=== PATIENT | female | born 1965 | race Caucasian/White ===

== ENCOUNTER 2022-06-20 14:51 | Emergency (ER) | payer BC ==
[~2022-06-20 14:51] MED LIST: AMOXICILLIN 25250 MG PO; LOPRESSOR 225 MG/TAB PO; NO HOME MEDICATIONS; NORVASC 5MG5 MG/TAB PO; TENORMIN25 MG PO; TOPROL XL 50MG50 MG PO; ear drops
[2022-06-20 15:21] VITALS: TEMP 97.9
[2022-06-20 16:39] LABS: COLLECTION METHOD CLEAN CATCH
[2022-06-20 16:41] LABS: URINE APPEARANCE Turbid (CLEAR/HAZY); URINE COLOR Red (YELLOW)
[2022-06-20 16:42] LABS: PH 5.5 (5.0-8.5); URINE GLUCOSE Negative (NEGATIVE); URINE KETONE 3+ (NEGATIVE); URINE NITRATE Positive (NEGATIVE); URINE PROTEIN(semi-quant) 3+ (NEGATIVE)
[2022-06-20 16:43] LABS: URINE BLOOD 3+ (NEGATIVE)
[2022-06-20 16:49] LABS: MUCOUS Present (NOT PRESENT); SQUAMOUS EPITHELIAL 20-50 /hpf (0-10); URINE BACTERIA Rare /hpf (NONE SEEN); URINE RBC >50 /hpf (0-2)
[2022-06-20] MEDS ORDERED: CIPRO 500MG TA500 MG PO (17:14)
[2022-06-20 17:27] VITALS: BP 162/132; PULSE 65
== END 2022-06-20 17:32 | disposition home or self-care (01) ==
LOC: COL.ER 14:51
PROVIDERS: Personal Emergency Response Attendant
DX: N39.0 Urinary tract infection, site not specified (principal); Z28.311 Partially vaccinated for COVID-19
CPT/HCPCS: J0696

== ENCOUNTER 2022-12-23 08:18 | Emergency (ER) | payer BC ==
[~2022-12-23] VITALS: Ht 167.6 cm; Wt 113.6 kg
[~2022-12-23 08:18] MED LIST changes: +CIPRO 500MG TA500 MG PO
[2022-12-23 08:21] VITALS: TEMP 98.2
[2022-12-23 08:53] LABS: BASO # 0.1 K/mm3 (0.0-0.2); BASO % 0.7 % (0.0-2.0); EOS # 0.5 K/mm3 (0.0-0.7); EOS % 4.6 % (0.0-4.0); GRAN # 6.2 K/mm3 (1.4-6.5); GRAN % 57.7 % (42.2-75.2); HEMATOCRIT 40.9 % (37.0-47.0); HEMOGLOBIN 14.5 g/dl (12.5-16.0); LYMPH % 27.8 % (20.0-51.0); MEAN CELL VOLUME 95 fl (80.0-100.0); MEAN CORPUSCULAR HEMOGLOBIN 34 pg (27-31); MEAN CORPUSCULAR HGB CONC 36 g/dl (33.0-37.0); MEAN PLATELET VOLUME 9.3 fl (7.4-10.4); MONO # 0.9 K/mm3 (0.1-0.6); MONO % 8.3 % (1.7-9.3); PLATELET COUNT 126 K/mm3 (130-400); RED BLOOD COUNT 4.29 M/mm3 (4.10-5.30); REDCELL DISTRIBUTION WIDTH-CV 14.7 % (11.5-14.5)
[2022-12-23 09:06] LABS: BILIRUBIN,DIRECT 0.7 mg/dL (0.0-0.5); BILIRUBIN,TOTAL 2.4 mg/dL (0.2-1.2); CREATININE, serum 0.77 mg/dL (0.57-1.11); POTASSIUM 3.3 mmol/L (3.5-4.5); TOTAL PROTEIN 7.8 gm/dL (6.2-8.1)
[2022-12-23 10:43] LABS: COLLECTION METHOD CLEAN CATCH
[2022-12-23 11:22] LABS: URINE BACTERIA Rare /hpf (NONE SEEN)
[2022-12-23 11:25] LABS: PH 5.5 (5.0-8.5); URINE APPEARANCE Hazy (CLEAR/HAZY); URINE BLOOD 3+ (NEGATIVE); URINE COLOR Yellow (YELLOW); URINE GLUCOSE Negative (NEGATIVE); URINE KETONE 2+ (NEGATIVE); URINE NITRATE Negative (NEGATIVE); URINE PROTEIN(semi-quant) 1+ (NEGATIVE); URINE UROBILINOGEN 0.2 E.U/dL (0.2-1.0)
[2022-12-23] MEDS ORDERED: CEPHALEXIN500 M1 PO (12:01)
[2022-12-23 12:12] VITALS: BP 187/123; PULSE 77
== END 2022-12-23 12:12 | disposition home or self-care (01) ==
LOC: COL.ER 08:18
PROVIDERS: Emergency Medicine
DX: R20.2 Paresthesia of skin (principal); T36.8X5A Adverse effect of other systemic antibiotics, initial encounter; N30.01 Acute cystitis with hematuria; R94.31 Abnormal electrocardiogram [ECG] [EKG]; R03.0 Elevated blood-pressure reading, without diagnosis of hypertension; R74.8 Abnormal levels of other serum enzymes; Z88.2 Allergy status to sulfonamides
CPT/HCPCS: J7120

== ENCOUNTER 2023-01-23 19:25 | Inpatient (IN) | payer BC ==
[~2023-01-23] VITALS: Ht 170.2 cm; Wt 116.9 kg
[~2023-01-23 19:25] MED LIST changes: +CEPHALEXIN500 M1 PO
[2023-01-23 20:34] LABS: HEMATOCRIT 41.5 % (37.0-47.0); HEMOGLOBIN 14.9 g/dl (12.5-16.0); MEAN CELL VOLUME 95 fl (80.0-100.0); MEAN CORPUSCULAR HEMOGLOBIN 34 pg (27-31); MEAN CORPUSCULAR HGB CONC 36 g/dl (33.0-37.0); MEAN PLATELET VOLUME 9.7 fl (7.4-10.4); PLATELET COUNT 54 K/mm3 (130-400); RED BLOOD COUNT 4.37 M/mm3 (4.10-5.30)
[2023-01-23 20:53] LABS: ALANINE AMINOTRANSFERASE 32 U/L (0-55); ALBUMIN 3.6 gm/dL (3.5-5.0); ALKALINE PHOSPHATASE 121 U/L (40-150); ANION GAP 18 mmol/L (7-16); AST,SGOT 55 U/L (5-34); BILIRUBIN,TOTAL 5.9 mg/dL (0.2-1.2); BLOOD UREA NITROGEN 8 mg/dL (10-20); CALCIUM 8.2 mg/dL (8.4-10.2); CARBON DIOXIDE 21 mmol/L (22-29); CHLORIDE 101 mmol/L (98-107); CREATININE, serum 0.75 mg/dL (0.57-1.11); GLUCOSE 218 mg/dL (70-99); LIPASE 21 U/L (8-78); SODIUM 140 mmol/L (136-145); TOTAL PROTEIN 7.4 gm/dL (6.2-8.1)
[2023-01-23 20:56] LABS: BAND 3 % (0-10); MAGNESIUM 0.8 mg/dL (1.6-2.6); NEUTROPHILS 96 % (42.0-75.2); PLATELET ESTIMATE DECREASED (NORMAL)
[2023-01-23 21:04] LABS: TROPONIN-I < 0.010 ng/mL (0.00-0.033)
[2023-01-23 21:20] LABS: BILIRUBIN,DIRECT 1.1 mg/dL (0.0-0.5)
[2023-01-23 23:02] LABS: INR 1.2 (0.8-3.0); PROTHROMBIN TIME 14.2 SECONDS (9.7-12.8)
[2023-01-24] VITALS (10 sets, daily range): BP systolic 129–177; BP diastolic 79–113; PULSE 85–100; TEMP 97.8–98.6
--- NOTE | 2023-01-24 14:09 | NUR ---
SW met with the patient to discuss discharge plan. The patient lives alone in [place]. She reports independence with ADLs and does not have any DME. 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 The patient shares that she does not have a PCP. SW informed her how we can assist with getting her established with a PCP upon discharge. The patient states that she was already set up with one after her last hospital stay and has their information at home, so that she can call. She could not recall what the clinic or doctor's name was, at this time. She obtains her medications from [facility]. The patient does not have a DPOA-HC, but she was interested in obtaining a form. CYN provided. The patient states that she is not and has one child: Elizabeth Mary (ph#[phone]). Elizabeth lives in [place]. The patient plans to return home upon discharge. *Discharge plan: home*
--- NOTE | 2023-01-24 14:27 | NUR ---
Initial visit; Patient thanked Dance Professor for looking in on her and states she is finally doing better. Cathering states she has no spiritual needs at this time.
[2023-01-24 15:00] LABS: ALBUMIN 3.2 gm/dL (3.5-5.0); BILIRUBIN,TOTAL 4.3 mg/dL (0.2-1.2); CALCIUM 8.3 mg/dL (8.4-10.2); CREATININE, serum 0.65 mg/dL (0.57-1.11); MAGNESIUM 1.9 mg/dL (1.6-2.6); POTASSIUM 3.2 mmol/L (3.5-4.5)
[2023-01-24 15:37] LABS: HEMATOCRIT 39.4 % (37.0-47.0); HEMOGLOBIN 14.2 g/dl (12.5-16.0); MEAN CELL VOLUME 96 fl (80.0-100.0); MEAN CORPUSCULAR HEMOGLOBIN 35 pg (27-31); MEAN CORPUSCULAR HGB CONC 36 g/dl (33.0-37.0); MEAN PLATELET VOLUME 9.8 fl (7.4-10.4); PLATELET COUNT 54 K/mm3 (130-400); RED BLOOD COUNT 4.12 M/mm3 (4.10-5.30); REDCELL DISTRIBUTION WIDTH-CV 14.2 % (11.5-14.5)
[2023-01-24 15:39] LABS: BAND 10 % (0-10); LYMPHOCYTE 11 % (20.0-51.0); NEUTROPHILS 77 % (42.0-75.2); PLATELET ESTIMATE DECREASED (NORMAL)
--- NOTE | 2023-01-24 15:45 | NUR ---
PT UP TO BS, PT IS VERY UNSTEADY ON FEET. ASSIST X1 TO AND FROM BS. PT IS A/O X3 .
[2023-01-25] VITALS (11 sets, daily range): BP systolic 158–184; BP diastolic 97–124; PULSE 85–118; TEMP 97.5–98.6
--- NOTE | 2023-01-25 04:58 | NUR ---
0338 ALVERTO, NURSE'S AIDE NOTIFIED ME THAT THE PT.'S BP WAS 207/129 IN HER L) ARM WHILE THE PT. WAS SITTING, SHE TRIED HER BP ON HER R) ARM WHILE LAYING DOWN AND DGOT 182/106, I GAVE THE PT. A PRN DOSE OF HYDRALAZINE TO HELP WITH HER BP, PT. ASKED ME WHAT SHE WAS GOING TO BE ABLE TO DO AT HOME TO MANAGE HER BP, I INFORMED HER THAT SHE WOULD BE GOING HOME ON A PRESCRIPTION FOR HIGH BLOOD PRESSURE MEDICATION, BUT THAT I WASN'T SURE IF THEY WOULD NEED TO ADJUST HER DOSE OR ANYTHING BEFORE SHE WAS DISCHARGED, FROM REPORT I GOT WHEN THE PT. WAS ADMITTED YESTERDAY SHE IS NON COMPLIANT WITH MEDS, OR FOLLOWING UP WITH A DR, AND PT. STATED SHE DIDN'T KNOW THE LAST TIME SHE HAD TAKEN ANY MEDS WHEN I WAS TRYING TO OBTAIN HER MED REC, WILL CONTINUE TO MONITOR PT.'S BP FOLLOWING THIS DOSE OF HYDRALAZINE.
[2023-01-25 11:58] LABS: HEMATOCRIT 38.8 % (37.0-47.0); HEMOGLOBIN 13.5 g/dl (12.5-16.0); MEAN CELL VOLUME 98 fl (80.0-100.0); MEAN CORPUSCULAR HEMOGLOBIN 34 pg (27-31); MEAN CORPUSCULAR HGB CONC 35 g/dl (33.0-37.0); PLATELET COUNT 65 K/mm3 (130-400); RED BLOOD COUNT 3.98 M/mm3 (4.10-5.30); REDCELL DISTRIBUTION WIDTH-CV 14.4 % (11.5-14.5)
--- NOTE | 2023-01-25 12:10 | NUR ---
Medication given by primary nurse, KENIA Lynch. Documentation put on emar by KENIA mclean
[2023-01-25 13:22] LABS: BAND 1 % (0-10); EOSINOPHIL 4 % (0-4); LYMPHOCYTE 17 % (20.0-51.0); NEUTROPHILS 73 % (42.0-75.2)
[2023-01-25 13:23] LABS: PLATELET ESTIMATE DECREASED (NORMAL)
[2023-01-25 14:55] LABS: ALBUMIN 3.2 gm/dL (3.5-5.0); BILIRUBIN,DIRECT 1.4 mg/dL (0.0-0.5); BILIRUBIN,TOTAL 3.8 mg/dL (0.2-1.2); CALCIUM 8.3 mg/dL (8.4-10.2); CREATININE, serum 0.64 mg/dL (0.57-1.11); POTASSIUM 3.1 mmol/L (3.5-4.5); TOTAL PROTEIN 6.7 gm/dL (6.2-8.1)
--- NOTE | 2023-01-25 15:53 | NUR ---
PATIENT ALERT AND ORIENTED X3. PRN HYDRALAZINE GIVEN FOR HIGH BLOOD PRESSURE. IV TO RIGHT WRIST. NO NEW CONCERNS.
--- NOTE | 2023-01-25 19:11 | NUR ---
RECEIVED CHANGE OF SHIFT REPORT FROM DAY SHIFT RN.
[2023-01-26 03:12] VITALS: BP 180/117; PULSE 103; TEMP 98.2
--- NOTE | 2023-01-26 07:00 | NUR ---
CHANGE OF SHIFT REPORT GIVEN TO DAY SHIFT DERRICK AQUINO.
[2023-01-26 07:19] LABS: HEMATOCRIT 38.2 % (37.0-47.0); HEMOGLOBIN 13.2 g/dl (12.5-16.0); MEAN CELL VOLUME 99 fl (80.0-100.0); MEAN CORPUSCULAR HEMOGLOBIN 34 pg (27-31); MEAN CORPUSCULAR HGB CONC 35 g/dl (33.0-37.0); MEAN PLATELET VOLUME 9.8 fl (7.4-10.4); PLATELET COUNT 82 K/mm3 (130-400); RED BLOOD COUNT 3.88 M/mm3 (4.10-5.30); REDCELL DISTRIBUTION WIDTH-CV 14.3 % (11.5-14.5)
[2023-01-26 07:22] LABS: INR 1.2 (0.8-3.0); PROTHROMBIN TIME 13.4 SECONDS (9.7-12.8)
[2023-01-26 07:31] VITALS: BP 179/112; PULSE 126; TEMP 98
[2023-01-26 07:40] LABS: ALBUMIN 3.2 gm/dL (3.5-5.0); BILIRUBIN,TOTAL 2.5 mg/dL (0.2-1.2); CALCIUM 8.7 mg/dL (8.4-10.2); CREATININE, serum 0.7 mg/dL (0.57-1.11); MAGNESIUM 1.5 mg/dL (1.6-2.6); POTASSIUM 3.1 mmol/L (3.5-4.5); TOTAL PROTEIN 6.9 gm/dL (6.2-8.1)
[2023-01-26 07:51] LABS: BAND 5 % (0-10); BASOPHIL 1 % (0-2); EOSINOPHIL 3 % (0-4); LYMPHOCYTE 34 % (20.0-51.0)
[2023-01-26 07:52] LABS: MYELOCYTE 0 % (0-0); NEUTROPHILS 49 % (42.0-75.2)
[2023-01-26 07:53] LABS: PLATELET ESTIMATE DECREASED (NORMAL)
[2023-01-26 08:00] VITALS: BP_SYST 179
[2023-01-26] MEDS ORDERED: AMOXICILLIN 8751 TAB PO (08:35)
[2023-01-26] MEDS ORDERED: MAG-OX 400400 MG/TAB PO (08:36)
[2023-01-26] MEDS ORDERED: ALDACTONE50 MG PO (08:36)
[2023-01-26] MEDS ORDERED: LASIX 40MG TABL40 MG PO (08:36)
[2023-01-26] MEDS ORDERED: FOLIC ACID 11 MG/TA1 PO (08:37)
[2023-01-26] MEDS ORDERED: THIAMINE 1100 MG/TAB PO (08:37)
[2023-01-26] MEDS ORDERED: PROTONIX 40MG T40 MG PO (08:37)
[2023-01-26] MEDS ORDERED: COMPLETE MULTI1 TAB PO (09:15)
--- NOTE | 2023-01-26 11:09 | NUR ---
The clinical team is ready to discharge the patient. She is needing set up with a PCP. CYN followed up with the patient to inquire if she remembers what clinic or doctor it was that she was referred to. The patient cannot recall, but states that she was referred to this clinic, after her recent ED visit. SW reviewed the patient's last ED visit. The patient was referred to Dr. Keith at [facility]. CYN contacted the [facility] clinic to secure an appointment. The inspector packer glass container reports that Dr. Keith is booked until July for new patient appointments, but that they can get the patient in with one of their other providers. The patient was secured an appointment with Dr. Victoriano Covarrubias tomorrow, 01/27, at 1030. CYN notified the clinical unit coordinator of the appointment. No additional needs at this time.
[2023-01-26 11:39] VITALS: BP 133/86; PULSE 105; TEMP 98
[2023-01-26 12:00] VITALS: BP_SYST 133
== END 2023-01-26 13:05 | disposition home or self-care (01) | DRG 153 ==
LOC: COL.ER 19:25 → SURG 22:52
PROVIDERS: Emergency Medicine; Internal Medicine; Student in an Organized Health Care Education/Training Program; ADMIT Student in an Organized Health Care Education/Training Program
DX: J32.0 Chronic maxillary sinusitis (principal); M84.48XA Pathological fracture, other site, initial encounter for fracture; Z68.41 Body mass index [BMI] 40.0-44.9, adult; K76.0 Fatty (change of) liver, not elsewhere classified; R16.0 Hepatomegaly, not elsewhere classified; D69.6 Thrombocytopenia, unspecified; E87.6 Hypokalemia; E83.42 Hypomagnesemia; F10.10 Alcohol abuse, uncomplicated; N85.2 Hypertrophy of uterus; I10 Essential (primary) hypertension; E80.6 Other disorders of bilirubin metabolism; E66.9 Obesity, unspecified; Z20.822 Contact with and (suspected) exposure to COVID-19; Z88.2 Allergy status to sulfonamides; Z90.89 Acquired absence of other organs; Z87.440 Personal history of urinary (tract) infections
CPT/HCPCS: C9113; J0360; J2060; J2405; J2765; J3475; J3480; J7120; Q9967

== ENCOUNTER 2024-03-27 15:59 | Inpatient (IN) | payer BC ==
[~2024-03-27] VITALS: Ht 170.2 cm; Wt 112.1 kg
[~2024-03-27 15:59] MED LIST changes: +ALDACTONE50 MG PO; +AMOXICILLIN 8751 TAB PO; +COMPLETE MULTI1 TAB PO; +FOLIC ACID 11 MG/TA1 PO; +KLOR-CON20 MEQ PO; +LASIX 40MG TABL40 MG PO; +MAG-OX 400400 MG/TAB PO; +PROTONIX 40MG T40 MG PO; +THIAMINE 1100 MG/TAB PO; +Thiamine 100 MG TAB PO SCH
[2024-03-27] MEDS ORDERED: NS 1,000 ML IV ONE (16:30)
[2024-03-27 17:00] LABS: BASO # 0.1 K/mm3 (0.0-0.2); BASO % 0.7 % (0.0-2.0); EOS # 0.3 K/mm3 (0.0-0.7); GRAN % 71.3 % (42.2-75.2); HEMATOCRIT 41.8 % (37.0-47.0); LYMPH # 1.9 K/mm3 (1.2-3.4); LYMPH % 16.7 % (20.0-51.0); MEAN CELL VOLUME 99 fl (80.0-100.0); MEAN CORPUSCULAR HEMOGLOBIN 33 pg (27-31); MEAN CORPUSCULAR HGB CONC 34 g/dl (33.0-37.0); MEAN PLATELET VOLUME 8.6 fl (7.4-10.4); MONO # 0.9 K/mm3 (0.1-0.6); MONO % 7.6 % (1.7-9.3); PLATELET COUNT 368 K/mm3 (130-400); RED BLOOD COUNT 4.24 M/mm3 (4.10-5.30); REDCELL DISTRIBUTION WIDTH-CV 14.1 % (11.5-14.5)
[2024-03-27 17:21] LABS: ALBUMIN 3.5 g/dL (3.5-5.0); BILIRUBIN,TOTAL 0.5 mg/dL (0.2-1.2); C-REACTIVE PROTEIN 13.98 mg/dL (0.00-0.50); CALCIUM 9.7 mg/dL (8.4-10.2); CREATININE, serum 1.11 mg/dL (0.57-1.11); POTASSIUM 3.6 mEq/L (3.5-4.5); TOTAL PROTEIN 7.8 g/dl (6.2-8.1)
[2024-03-27] MEDS ORDERED: NORVASC 10MG10 MG PO (19:07)
[2024-03-27] MEDS ORDERED: LASIX 20MG TABL20 MG PO (19:08)
[2024-03-27] MEDS ORDERED: AMOXICILLIN875 MG PO (19:09)
[2024-03-27] MEDS ORDERED: MONODOX100 PO (19:09)
[2024-03-27] MEDS ORDERED: NEURONTIN300 MG/CAP PO (19:09)
[2024-03-27] MEDS ORDERED: hydrALAZINE 20 MG/ML 1 ML VIAL IV PRN (19:15)
[2024-03-27] MEDS ORDERED: hydrALAZINE 10 MG TAB PO SCH (19:15)
[2024-03-27] MEDS ORDERED: Ibuprofen Oral Susp 100 MG/5 ML UD PO ONE (19:45)
[2024-03-27] MEDS ORDERED: HYDROmorphone 0.5 MG/0.5 ML SYRINGE IV PRN (20:00)
[2024-03-27] MEDS ORDERED: Tetanus,Diphther Toxoid Adult 0.5 ML SYRINGE IM ONE (20:00)
[2024-03-27] MEDS ORDERED: oxyCODONE/Acetaminophen 5-325 MG TAB PO PRN (20:15)
[2024-03-27] MEDS ORDERED: LORazepam 1 MG TAB PO PRN (20:45)
[2024-03-27] MEDS ORDERED: LORazepam 2 MG/ML 1 ML VIAL IV PRN (20:45)
[2024-03-27] MEDS ORDERED: LORazepam 2 MG/ML 1 ML VIAL IM PRN (20:45)
[2024-03-27] MEDS ORDERED: Gabapentin 300 MG CAP PO SCH (21:00)
[2024-03-27] MEDS ORDERED: Metoprolol Tartrate 25 MG TAB PO SCH (21:00)
--- NOTE | 2024-03-27 21:30 | NUR ---
PATIENT ARRIVE TO ROOM 314 VIA WHEELCHAIR FROM ED. AMBULATED TO BED WITHOUT ANY ASSISTIVE DEVICES. PATIENT WISHES TO SIT UP IN RECLINER AND AMBULATED TO CHAIR WITH STEADY GAIT. SHE IS ALERT AND ORIENTED. PRESENTLY STABLE ON ROOM AIR. DENIES ANY CURRENT PAIN IN EITHER LEG BUT REPORTS THAT PAIN DOES WORSEN WITH ACTIVITY. ORIENTED ON USE OF CALL LIGHT AND ENSURED CALL LIGHT IS WITHIN REACH. RECLINER IS LOCKED. BED IS LOCKED AND IN LOW POSITION. PATIENT IS INDEPENDENT IN THE ROOM.
[2024-03-27 22:16] LABS: INR 1.1 (0.8-3.0); PROTHROMBIN TIME 12.2 SECONDS (9.7-12.8)
[2024-03-27 22:19] LABS: PARTIAL THROMBOPLASTIN TIME 33.1 SECONDS (26.0-37.0)
[2024-03-27 23:51] VITALS: BP 134/89; PULSE 87; TEMP 97.7
[2024-03-28] VITALS (18 sets, daily range): BP systolic 119–151; BP diastolic 73–101; PULSE 64–99; TEMP 97.7–98.8
--- NOTE | 2024-03-28 00:38 | NUR ---
WOUNDS ON BILATERAL LEGS DRESSED WITH XEROFORM GAUZE, ABD PADS, AND ROLLED GAUZE. BOTH LEGS HAVE SIGNIFICANT AMOUNT OF CLEAR HONEY COLORED DRAINAGE FROM WOUNDS.
[2024-03-28] MEDS ORDERED: Multivitamin TAB PO SCH (08:00)
[2024-03-28] MEDS ORDERED: Folic Acid 1 MG TAB PO SCH (09:00)
[2024-03-28] MEDS ORDERED: Thiamine 100 MG TAB PO SCH (09:00)
--- NOTE | 2024-03-28 09:31 | NUR ---
PATIENT SITTING UP IN RECLINER UPON ENTERING ROOM. MORNING MEDICATIONS ADMINISTERED PER eMAR. SHIFT ASSESSMENT COMPLETED. PATIENT DENIES PAIN AT THIS TIME. DRESSING TO BLE HAVE SOME DRAININGE NOTED. PATIENT UPDATED ON PLAN OF CARE. CALL LIGHT PLACED WITHIN REACH. WILL CONTINUE TO MONITOR.
[2024-03-28] MEDS ORDERED: oxyCODONE/Acetaminophen 5-325 MG TAB PO PRN (11:35)
[2024-03-29] VITALS (13 sets, daily range): BP systolic 102–135; BP diastolic 81–97; PULSE 65–91; TEMP 98.2–99.5
--- NOTE | 2024-03-29 05:30 | NUR ---
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 OLD IV TO LA REMOVED (IT WENT BAD), CATHETER TIP INTACT. NEW IV TO LH PLACED (22GA). PT COMPLAINED OF PAIN TO BLE. PT GIVEN PERCOCET FOR PAIN. PT FELT PAIN MEDICATION WAS EFFECTIVE. PT DENIED CHEST PAIN, PALPITATIONS, SOB, N,V,D OR DIZZINESS. CALL LIGHT WITHIN REACH.
--- NOTE | 2024-03-29 08:47 | NUR ---
SHIFT ASSESSMENT COMPLETED AT THIS TIME. PT A&O X4. PT REPORTS 5/10 PAIN LOCATED IN BILATERAL LOWER EXTREMITIES. PRN MEDICATION ADMINISTERED ALONG WITH MORNING MEDICATIONS. NURSING STAFF ENCOURAGING PATIENT TO ELEVATE LEGS MUCH POSSIBLE TO HELP WITH DRAINAGE. NO OTHER COMPLAINTS AT THIS TIME. CALL LIGHT WITHIN REACH.
--- NOTE | 2024-03-29 09:05 | NUR ---
Agree with BURTON Quevedo assessment of the patient. Nursing staff encouraging the patient to elevate legs to help with edema. Air pillow given to elevate legs. Call light within reach
[2024-03-29] MEDS ORDERED: Cefepime 1 G in Water For Injection,Sterile 10 ML IV SCH (09:30)
[2024-03-29] MEDS ORDERED: Furosemide 40 MG/4 ML VIAL IV ONE (09:45)
--- NOTE | 2024-03-29 13:16 | NUR ---
Sticker On met with patient to discuss discharge planning. Patient lives alone in [place] and sees Dr. Hernandez for primary care. Patient gets her medications from [facility] with no difficulties and does not use any DME. Patient is independent with ADLS and works for [employer]. Patient does not have DPOA-HC and did not want to complete one at this time, however requested the form which SW provided. Patient has one child, Elizabeth (ph#[phone]). Patient plans to return home at time of discharge. Discharge Plan: Home
[2024-03-29] MEDS ORDERED: Linezolid 600 MG TAB PO SCH (21:00)
[2024-03-30] VITALS: BP_SYST 132
[2024-03-30 03:27] VITALS: BP 120/72; PULSE 80; TEMP 98.6
[2024-03-30 04:00] VITALS: BP_SYST 120
[2024-03-30 04:59] LABS: BASO # 0.1 K/mm3 (0.0-0.2); BASO % 0.7 % (0.0-2.0); EOS # 0.3 K/mm3 (0.0-0.7); EOS % 3.4 % (0.0-4.0); GRAN # 6.6 K/mm3 (1.4-6.5); GRAN % 67.3 % (42.2-75.2); HEMATOCRIT 39.2 % (37.0-47.0); HEMOGLOBIN 12.8 g/dl (12.5-16.0); LYMPH # 1.8 K/mm3 (1.2-3.4); LYMPH % 17.9 % (20.0-51.0); MEAN CELL VOLUME 101 fl (80.0-100.0); MEAN CORPUSCULAR HEMOGLOBIN 33 pg (27-31); MEAN CORPUSCULAR HGB CONC 33 g/dl (33.0-37.0); MEAN PLATELET VOLUME 9.3 fl (7.4-10.4); MONO % 9.8 % (1.7-9.3); PLATELET COUNT 271 K/mm3 (130-400); RED BLOOD COUNT 3.89 M/mm3 (4.10-5.30); REDCELL DISTRIBUTION WIDTH-CV 14.2 % (11.5-14.5)
[2024-03-30 05:18] LABS: CALCIUM 8.9 mg/dL (8.4-10.2); CREATININE, serum 1.37 mg/dL (0.57-1.11); POTASSIUM 3.6 mEq/L (3.5-4.5)
[2024-03-30 07:37] VITALS: BP 136/86; PULSE 77; TEMP 98.2
[2024-03-30 09:00] VITALS: BP_SYST 136
--- NOTE | 2024-03-30 09:00 | NUR ---
PATIENT IS A&O X4. VSS. PATIENT HAD C/O PAIN AND RECEIVED PAIN MEDICATION. PATIENT IS INDEPENDENT W/ CARES AND MOBILITY. PATIENT ENCOUARGED TO KEEP LEGS ELEVATED THROUGHOUT THE DAY TO HELP WITH SWELLING. PERIPHERAL IV IS CLEAN, DRY, AND INTACT IN THE MICHELLE. PATIENT IS ON AHA DIET AND TOLERATES WELL. SHIFT ASSESSMENT DONE. DAILY DRESSING CHANGE COMPLETED.
[2024-03-30] MEDS ORDERED: ZYVOX 600MG600 MG PO (11:34)
[2024-03-30] MEDS ORDERED: OMNICEF 300MG300 MG PO (11:35)
[2024-03-30] MEDS ORDERED: PERCOCET 325 MG1 TA2 PO ×2 (11:36→11:42)
--- NOTE | 2024-03-30 12:21 | NUR ---
DISCHARGE EDUCATION REVIEWED WITH PATIENT. PATIENT VERBALIZED AN UNDERSTANDING. IV REMOVED WITH TIP INTACT. GAUZE AND COBAND APPLIED. PATIENT PROVIDED WITH DRESSING CHANGE SUPPLIES. NO FURTHER NEEDS EXPRESSED. PATIENT CALLING [facility] FOR RIDE HOME. CALL LIGHT WITHIN REACH.
--- NOTE | 2024-03-30 12:36 | NUR ---
PATIENT TAKEN BY WHEELCHAIR TO ER ENTRANCE AND WAITING FOR [facility] RIDE HOME.
--- NOTE | 2024-03-30 12:46 | NUR ---
Data: Patient politely declined Spiritual Care visit offered during Inkjet Operator rounds. She hoped to discharge today. Assessment: None. Patient declined. Plan of Care: Patient has discharged at time of charting.
== END 2024-03-30 12:36 | disposition home or self-care (01) | DRG 603 ==
LOC: COL.ER 15:59 → MEDICAL 20:36 → SURG 21:23
PROVIDERS: Internal Medicine; Nurse Practitioner Family; Physician Assistant; ADMIT Internal Medicine
DX: L03.115 Cellulitis of right lower limb (principal); L97.922 Non-pressure chronic ulcer of unspecified part of left lower leg with fat layer exposed; L03.116 Cellulitis of left lower limb; I10 Essential (primary) hypertension; I89.0 Lymphedema, not elsewhere classified; F10.10 Alcohol abuse, uncomplicated
CPT/HCPCS: J0692; J1170; J1650; J1940; J2543; J3370; J7030; J7050